=== PATIENT | female | born 1995 | race Caucasian/White ===

== ENCOUNTER → 2017-10-25 | Outpatient (CLI) | payer BC ==
[2017-10-25 16:28] LABS: BASO # 0.1 x10^3/uL (0.0-0.2); BASO % 1 % (0-3); EOS # 0.2 x10^3/uL (0.0-0.7); EOS % 2 % (0-3); HEMATOCRIT 41.7 % (36.0-47.0); HEMOGLOBIN 14.2 g/dL (12.0-15.5); LYMPH # 1.9 x10^3/uL (1.0-4.8); LYMPH % 28 % (24-48); MEAN CORPUSCULAR HEMOGLOBIN 30 pg (25-35); MEAN CORPUSCULAR HGB CONC 34 g/dL (31-37); MEAN CORPUSCULAR VOLUME 87 fL (79-100); MONO # 0.5 x10^3/uL (0.0-1.1); MONO % 8 % (0-9); NEUT # 4.2 x10^3uL (1.8-7.7); NEUT % 61 % (31-73); PLATELET COUNT 184 x10^3/uL (140-400); RED BLOOD COUNT 4.79 x10^6/uL (3.50-5.40); RED CELL DISTRIBUTION WIDTH 12.6 % (11.5-14.5); WHITE BLOOD COUNT 6.9 x10^3/uL (4.0-11.0)
[2017-10-25 16:45] LABS: ALBUMIN 4.4 g/dL (3.4-5.0); ALBUMIN/GLOBULIN RATIO 1.3 (1.0-1.7); BARBITURATES NEG (NEG); BENZODIAZEPINES NEG (NEG); CALCIUM 9.7 mg/dL (8.5-10.1); CANNABINOIDS NEG (NEG); COCAINE NEG (NEG); CREATININE 0.8 mg/dL (0.6-1.0); GFR 88.9; METHADONE NEG (NEG); OPIATES NEG (NEG); PHENCYCLIDINE NEG (NEG); POTASSIUM 4.4 mmol/L (3.5-5.1); TOTAL BILIRUBIN 0.4 mg/dL (0.2-1.0); TOTAL PROTEIN 7.9 g/dL (6.4-8.2)
[2017-10-25 16:50] LABS: AMPHETAMINE/METHAMPHETAMINE POS (NEG)
[2017-10-25 16:56] LABS: FREE T4 0.9 ng/dL (0.76-1.46); THYROID STIM HORMONE (TSH) 1.311 uIU/mL (0.358-3.74)
== END | disposition home or self-care (01) ==
LOC: LAB 16:02
PROVIDERS: ATTEND Psychiatry & Neurology Neurology
DX: H54.62 Unqualified visual loss, left eye, normal vision right eye (principal); H47.10 Unspecified papilledema
CPT/HCPCS: 36415; 80053; 80307; 82607; 84439; 84443; 85025; 85651; 86141; G0479

== ENCOUNTER → 2017-11-01 | Outpatient (CLI) | payer BC ==
[~2017-11-01] MED LIST: GADOBUTROL 7.5 MMOL/7.5 ML VIAL IV ONE
--- NOTE | 2017-11-01 16:45 | RAD ---
MRI Brain with and without contrast History: Visual loss of the left eye, papilledema Technique: Multiplanar, multi sequential pre and postcontrast MR imaging was performed of the brain. Contrast: 6 cc Gadavist Comparison: None Findings: There is no evidence of recent infarct or cytotoxic edema. The ventricles, sulci, and cisterns are within normal limits in size and configuration. There is no significant midline shift, intraaxial mass effect, or focal abnormal extra-axial fluid collection. There is no significant signal abnormality of the brain parenchyma. There is no nodular parenchymal or leptomeningeal enhancement. There is preservation of the major intracranial flow-voids at the skull base. The cerebellar tonsils are normal in location. There is no significant abnormality of the pineal gland or pituitary gland. There is mild right maxillary sinus mucosal thickening and probable small mucous retention cyst. There is left maxillary sinus mucous retention cyst about 1.5 cm with somewhat complex signal features. There is some patchy mild fluid of the right mastoid air cells. There is preserved marrow signal of the clivus. There are some nonspecific increased CSF signal of the optic nerve sheaths. No discrete orbital mass is identified. There is no appreciable enhancement of the optic nerves. There is no displacement of the optic chiasm. Extraocular muscles are symmetric in appearance. Impression: 1. There is nonspecific increased CSF signal of the optic nerve sheaths although no other imaging findings particularly suggestive of intracranial hypertension. There is no abnormal intracranial enhancement or other significant intracranial abnormality. 2. There is some patchy nonspecific fluid of the right mastoid air cells. Electronically signed by: Pancho Stoddard MD (11/01/2017 4:41 PM) [id number]
== END | disposition home or self-care (01) ==
LOC: MRI 14:07
PROVIDERS: ATTEND Psychiatry & Neurology Neurology
DX: J34.1 Cyst and mucocele of nose and nasal sinus (principal)
CPT/HCPCS: 70542; 70553; A9585

== ENCOUNTER → 2017-11-08 | Outpatient (CLI) | payer BC ==
[2017-11-08 16:23] LABS: PROTHROMBIN TIME PATIENT 13.5 SEC (11.7-14.0)
== END | disposition home or self-care (01) ==
LOC: LAB 15:59
PROVIDERS: ATTEND Psychiatry & Neurology Neurology
DX: H54.62 Unqualified visual loss, left eye, normal vision right eye (principal)
CPT/HCPCS: 36415; 85610

== ENCOUNTER 2017-11-11 08:17 | Outpatient (CLI) | payer BC ==
[2017-11-11] MEDS ORDERED: LIDOCAINE WITH 8.4% SOD BICARB 3 ML DISP.SYRIN. INJ ONE (08:30)
[2017-11-11 09:35] VITALS: BP 106/73
[2017-11-11 10:35] VITALS: BP 116/63
[2017-11-11 11:13] LABS: CSF PROTEIN 27.3 mg/dL (15.0-45.0)
[2017-11-11 11:31] LABS: CSF CLARITY CLEAR; CSF COLOR COLORLESS; CSF RBC COUNT 0; CSF WBC COUNT 1
[2017-11-11 11:44] VITALS: BP 114/72
[2017-11-11 12:35] VITALS: BP 110/74
--- NOTE | 2017-11-12 17:05 | RAD ---
Fluoroscopically guided lumbar puncture, 11/11/2017: History: Pseudotumor cerebri, eye dysfunctional Under local anesthesia, aseptic conditions and fluoroscopic guidance a lumbar puncture was performed at the upper L3 level utilizing a 20-gauge spinal needle. Good clear CSF flow was obtained. The opening pressure was measured at 17 cm of water. 8 cc of CSF was removed and sent to the lab for appropriate studies. The closing pressure was 13 cm of water. The spinal needle was then removed and hemostasis obtained. The patient tolerated the procedure well. 0.7 minutes of fluoroscopy time was utilized. One fluoroscopic spot image was recorded. The patient will be monitored in the department for 3 hours and then discharged if no problems develop.
[2017-11-13 20:08] LABS: HERPES SIMPLEX TYPE 1 Negative (Negative); HERPES SIMPLEX TYPE 2 Negative (Negative)
== END 2017-11-11 12:40 | disposition home or self-care (01) ==
LOC: RAD 08:17
PROVIDERS: ATTEND Psychiatry & Neurology Neurology
DX: G93.2 Benign intracranial hypertension (principal)
CPT/HCPCS: 62270; 77003; 82945; 84157; 87071; 87075; 87102; 87252; 87529; 89051